=== PATIENT | male | born 1995 | race Caucasian/White ===

== ENCOUNTER 2018-07-16 13:16 | Emergency (ER) | payer BC, MEDICAID ==
[2018-07-16 13:23] VITALS: BP 142/86; PULSE 73; O2SAT 98
[2018-07-16] MEDS ORDERED: TETRACAINE 0.5% STERI-UNIT SOL OP STA (13:30)
[2018-07-16] MEDS ORDERED: Fluor-I-Strip/Ful-Flo OP ONE ×2 (13:30→13:32)
[2018-07-16] MEDS ORDERED: Eye-Stream Solution OP ONE (13:30)
[2018-07-16] MEDS ORDERED: Eye-Stream Solution ONE (13:32)
[2018-07-16] MEDS ORDERED: TETRACAINE 0.5% STERI-UNIT SOL OP ONE (13:32)
[2018-07-16] MEDS ORDERED: Ciloxan OPHTH OP ONE (13:43)
[2018-07-16] MEDS ORDERED: Ciloxan OPHTH ONE (13:47)
--- NOTE | 2018-07-16 13:49 | ERPHSYRPT ---
- History of Present Illness Time Seen by Provider: 07/16/18 13:27 Source: patient Exam Limitations: no limitations Patient Subjective Stated Complaint: patietn putting on metal siding and got piece of what he thinks might be metal or something in his eye Triage Nursing Assessment: pt alert and oriented x3, able to ambulate by self, gait is steady, viaiual accutity checked patient able to see 20/20 uncorrected, eye is reddened nad has clear drainage patient sates it is irritated, small black dot visible in eye Physician History: 23-year-old white male arrives with complaint of left eye pain and possible foreign body in his left eye symptoms since yesterday patient states he was using a pigment grinder on siding, then later that afternoon, the patient began to have pain and erythema in his left eye. Patient states he thought he had a foreign body on his left eye he states he tried to remove it with a Q-tip. He apparently presented to [facility] In [place] and was noted to have a small foreign body in his left eye. On arrival patient has erythema to the left eye there is a visible corneal foreign body which is punctate at approximately 8 o'clock position on the left eye. Past medical history is negative. Past surgical history is negative. Timing/Duration: yesterday Location: left eye Severity: moderate Apparent Injury: yes Associated Symptoms: pain, redness, foreign body sensation Visual Assistive Devices: None Chemical Exposure: No Trauma: Yes (possible foreign body left eye) Allergies/Adverse Reactions: No Known Drug Allergies Allergy (Verified 07/16/18 13:30) Hx Tetanus, Diphtheria Vaccination/Date Given: Yes Hx Influenza Vaccination/Date Given: No Hx Pneumococcal Vaccination/Date Given: No Immunizations Up to Date: Yes - Review of Systems Constitutional: No Symptoms Eyes: Eye Pain, Eye Redness, Tearing, Foreign Body Sensation, No Itchy, No Photophobia, No Vision Changes, No Double Vision Ears, Nose, & Throat: No Symptoms Respiratory: No Cough, No Dyspnea Cardiac: No Chest Pain, No Edema, No Syncope Abdominal/Gastrointestinal: No Abdominal Pain, No Nausea, No Vomiting, No Diarrhea Genitourinary Symptoms: No Dysuria Musculoskeletal: No Back Pain, No Neck Pain Skin: No Rash Neurological: No Dizziness, No Focal Weakness, No Sensory Changes Psychological: No Symptoms Endocrine: No Symptoms All Other Systems: Reviewed and Negative - Past Medical History Pertinent Past Medical History: No - Past Surgical History Past Surgical History: No - Social History Smoking Status: Never smoker Drug Use: none Patient Lives Alone: No - Nursing Vital Signs Nursing Vital Signs: Initial Vital Signs Temperature 98.5 F 07/16/18 13:16 Pulse Rate 73 07/16/18 13:16 Respiratory Rate 18 07/16/18 13:16 Blood Pressure 142/86 07/16/18 13:16 O2 Sat by Pulse Oximetry 98 07/16/18 13:16 Pain Scale Pain Intensity 4 - Physical Exam General Appearance: mild distress Vision Acuity Degree Evaluation Phase: Uncorrected Vision Acuity Right Eye: 20/20 Vision Acuity Left Eye: 20/20 Eye Exam: right eye: normal inspection, left eye: conjunctival inflammation, corneal abrasion, foreign body (punctate foreign body 8 o'clock position), other (left eye sclera erythematous injected, left conjunctiva erythematous, punctate foreign body at 8:00 position left eye), bilateral eye: PERRL, EOMI Ears, Nose, Throat Exam: normal ENT inspection, TMs normal, pharynx normal, moist mucous membranes Neck Exam: normal inspection Respiratory Exam: normal breath sounds, lungs clear, airway intact, No respiratory distress Cardiovascular Exam: regular rate/rhythm, normal heart sounds, normal peripheral pulses Gastrointestinal Exam: soft, normal bowel sounds, No tenderness, No distention, No mass Extremity Exam: normal inspection, normal range of motion Neurologic: alert, oriented x 3, hand shoes sewer II-XII nml as tested, normal mood/affect, nml cerebellar function Skin Exam: normal color SpO2 Interpretation: normal SpO2: 98 Oxygen Delivery: Room Air - Course Nursing assessment & vital signs reviewed: Yes Ordered Tests: Active Orders 24 hr Category Date Time Status Visual Acuity STAT Care 07/16/18 13:30 Active Medication Summary Generic Name Dose Route Start Last Admin Trade Name Freq PRN Reason Stop Dose Admin Ciprofloxacin 2.5 ml 07/16/18 13:43 Ciloxan Ophth OP 07/16/18 13:44 STAT ONE Discontinued Medications Generic Name Dose Route Start Last Admin Trade Name Freq PRN Reason Stop Dose Admin Eye Irrigation Solution 15 ml 07/16/18 13:30 07/16/18 13:34 Eye-Stream Solution OP 07/16/18 13:31 15 ml STAT ONE Administration Eye Irrigation Solution Confirm 07/16/18 13:32 Eye-Stream Solution Administered 07/16/18 13:33 Dose 30 ml .ROUTE .STK-MED ONE Fluorescein Sodium 1 mg 07/16/18 13:30 07/16/18 13:35 Ussnb-W-Dileb/Ful-Perez OP 07/16/18 13:31 1 mg STAT ONE Administration Fluorescein Sodium Confirm 07/16/18 13:32 Wugfx-O-Vcemt/Ful-Perez Administered 07/16/18 13:33 Dose 1 mg OP .STK-MED ONE Tetracaine HCl 4 ml 07/16/18 13:30 07/16/18 13:35 Tetracaine 0.5% Steri-Unit Mirian OP 07/16/18 13:31 4 ml STAT STA Administration Tetracaine HCl Confirm 07/16/18 13:32 Tetracaine 0.5% Steri-Unit Mirian Administered 07/16/18 13:33 Dose 4 ml OP .STK-MED ONE - Progress Progress: improved Progress Note: 07/16/18 13:49 This is a 23-year-old white male who arrives with complaint of foreign body sensation in left eye pain symptoms since yesterday. He states in the afternoon yesterday he was using a pigment grinder on then yesterday afternoon he began to have pain in the left eye. On arrival patient's vision is checked by the patient's nurse is 20/20 bilaterally. Patient's left eye conjunctiva is erythematous sclerae injected and erythematous there is a visible foreign body punctate at 8 o'clock position on the left eye fundi are unremarkable. Eyes PERRLA EOMI fundi are unremarkable. 0.5% tetracaine is instilled in the patient's left eye. And a moistened cotton tip applicator is used to remove the foreign body without problems. Left eye is stained with fluorosceine, there is a small less than 1 mm abrasion representing where foreign body was at the 8 o'clock position on the left eye. Both lids are everted on the left eye no further foreign bodies are noted. Left eye is irrigated with sterile eyewash solution. Ciloxan 0.3% drops will be ordered for the patient's left eye. Patient is up-to-date with his tetanus was last tetanus less than 5 years. Patient will be given a small amount of Anna Maria he is to use Ciloxan drops 1-2 drops in the left eye 4 times a day for the next 5 days. He is to follow-up with his company doctor, family doctor or reviewer sales/ social staff worker Wednesday for recheck. He is to return for acute distress or for severe symptoms 07/16/18 13:55 patient denies any problems with drugs or narcotics - Departure Time of Disposition: 13:52 Departure Disposition: Home Clinical Impression: Corneal foreign body Qualifiers: Encounter type: initial encounter Laterality: left Qualified Code(s): T15.02XA - Foreign body in cornea, left eye, initial encounter Condition: Fair Critical Care Time: No Referrals: MANJU MONCADA, [employer] [Primary Care Provider] - Instructions: Foreign Body in Eye (DC) Additional Instructions: Return home. Ciloxan drops 0.3% one to 2 drops left eye 4 times a day for 5 days. Anna Maria as prescribed. Drive home with windows rolled up on your car to avoid further foreign bodies. No computer, no reading no TV. Follow-up with your family doctor, company doctor, reviewer sales, social staff worker Wednesday sooner if problems. Return for acute distress or for severe symptoms. Prescriptions: Hydrocodone/Acetaminophen [Anna Maria 5-325 Tablet] 1 tab PO Q4-6HPRN PRN #10 tablet MDD 6 tablets PRN Reason: Pain
== END 2018-07-16 14:17 | disposition home or self-care (01) ==
LOC: ED 13:16
DX: T15.02XA Foreign body in cornea, left eye, initial encounter (principal); W26.8XXA Contact with other sharp object(s), not elsewhere classified, initial encounter
CPT/HCPCS: 99283; A9270-GY